=== PATIENT | female | born 2000 | race Two or more races ===

== ENCOUNTER 2023-03-09 14:55 | Outpatient (CLI) | payer BC ==
[2023-03-09 16:33] LABS: BHCG - Serum Negative (NEGATIVE)
[2023-03-09 16:34] LABS: Pregs Control Background? CLEAR/WHITE (CLR/WHITE); Pregs Control Bar Appear? YES (CONTROL BAR)
== END 2023-03-09 14:56 | disposition home or self-care (01) ==
LOC: LABBT 14:55
PROVIDERS: ATTEND Student in an Organized Health Care Education/Training Program
DX: Z01.812 Encounter for preprocedural laboratory examination (principal)
CPT/HCPCS: 84703; 85014

== ENCOUNTER 2023-03-14 09:47 | Day surgery (SDC) | payer BC ==
[2023-03-09 15:23] VITALS: BMI 21.0
[2023-03-14] MEDS ORDERED: fentaNYL 50 mcg/mL 1 mL Vial ONE ×4 (11:41→13:29)
[2023-03-14] MEDS ORDERED: Magnesium 5 GM/10 ML VIAL ONE (11:41)
[2023-03-14] MEDS ORDERED: Lidocaine 1% PF 5 ML VIAL ONE (11:46)
[2023-03-14] MEDS ORDERED: Dexamethasone 20 MG/5 ML VIAL ONE (11:46)
[2023-03-14] MEDS ORDERED: PROPOFOL 200 MG/20 ML VIAL ONE (11:46)
[2023-03-14] MEDS ORDERED: Ondansetron PF 4 MG/2 ML Vial ONE ×2 (11:46→13:53)
[2023-03-14] MEDS ORDERED: Propofol 1,000 MG/100 ML VIAL IV ONE (12:04)
[2023-03-14] MEDS ORDERED: Propofol 500 MG/50 ML VIAL ONE (12:05)
== END 2023-03-14 14:30 | disposition home or self-care (01) ==
LOC: SDC 09:47
PROVIDERS: ATTEND Student in an Organized Health Care Education/Training Program
PROC: 0CTPXZZ Resection of Tonsils, External Approach (ICD-10-PCS; principal; 2023-03-14)
DX: J03.91 Acute recurrent tonsillitis, unspecified (principal); J35.01 Chronic tonsillitis; F17.290 Nicotine dependence, other tobacco product, uncomplicated
CPT/HCPCS: 88304; J1100; J2405; J2704; J3010; J3475